=== PATIENT | female | born 1995 | race Caucasian/White ===

== ENCOUNTER 2016-12-18 22:20 | Emergency (ER) | payer SELFPAY ==
[~2016-12-18] VITALS: Ht 167.6 cm; Wt 87.9 kg
[2016-12-18 22:26] VITALS: BP 120/70; PULSE 104; RESP 16; TEMP 97.5; O2SAT 100
[2016-12-18] MEDS ORDERED: HYDR-3533 PO (22:59)
[2016-12-18] MEDS ORDERED: CLIN1CAP5 PO (22:59)
[2016-12-18] MEDS ORDERED: IBUP800T23 PO (22:59)
[2016-12-18] MEDS ORDERED: CLINDAMYCIN 150 MG CAP PO ONE (23:00)
[2016-12-18] MEDS ORDERED: ACETAMINOPHEN/HYDROcodone 325 MG/5 MG TAB PO ONE (23:00)
[2016-12-18] MEDS ORDERED: IBUPROFEN 800 MG TAB PO ONE (23:00)
--- NOTE | 2016-12-18 23:00 | PD ---
HPI Chief Complaint: Back/ Neck Pain or Injury Time Seen by Provider: 22:48 Travel History International Travel<30 days: No Contact w/Intl Traveler<30days: No Traveled to known affect area: No History of Present Illness HPI 21-year-old female presents to the emergency department for complaint of one week of low back buttock cleft pain without injury or trauma. No redness no swelling no fever no chills. Normal bowel movement today. Increased pain today. Last period was approximately 1 week ago and normal for her patient denies is not sexually active. No chronic medical conditions. Direct palpation increases pain to 8/10 in intensity. PFSH Past Medical History Narrative Medical Negative past medical history oral surgery occasional alcohol use no tobacco use nursing notes reviewed Medical History: Denies Significant Hx Tetanus Vaccination: > 5 Years Influenza Vaccination: No ?: Not LMP: 12/12/16 : 0 Past Surgical History Oral Surgery: Yes Social History Alcohol Use: Yes ("RARELY") Tobacco Use: No Substance Use: No Allergies-Medications (Allergen,Severity, Reaction): Coded Allergies: No Known Allergies (Unverified , 12/18/16) Reported Meds & Prescriptions Reported Meds & Active Scripts Active No Active Prescriptions or Reported Medications Review of Systems Except as stated in HPI: all other systems reviewed are Neg General / Constitutional: No: Fever, Chills HENT: No: Congestion Cardiovascular: No: Chest Pain or Discomfort Gastrointestinal: No: Abdominal Pain Genitourinary: No: Flank Pain Musculoskeletal: No: Myalgias, Arthralgias Skin: Positive Rash, Positive Lumps Endocrine: No: Polyuria Hematologic/Lymphatic: No: Lymph Node Enlargement Physical Exam Narrative GENERAL: Well-developed well-nourished female in no acute distress no respiratory distress SKIN: Warm and dry. Buttock left mild erythema with focal induration firm nonfluctuant tissue at the buttock cleft tender to palpation non-pointing CARDIOVASCULAR: Regular rate and rhythm without murmurs, gallops, or rubs. RESPIRATORY: Breath sounds equal bilaterally. No accessory muscle use. BACK: Nontender without obvious deformity. No CVA tenderness. Data Data Last Documented VS Vital Signs Date Time Temp Pulse Resp B/P Pulse Ox O2 Delivery O2 Flow Rate FiO2 12/18/16 22:26 97.5 104 16 120/70 100 Room Air MDM Medical Decision Making Medical Screen Exam Complete: Yes Emergency Medical Condition: Yes Medical Record Reviewed: Yes Differential Diagnosis Cellulitis, abscess, fracture Narrative Course 21 year-old female with most likely an early pilonidal cyst abscess at the buttock cleft however area of mild induration without fluctuance or pointing at this time no area to incise for I&D. Area is tender with firm palpation but otherwise not exquisitely tender and clearly not fluctuant . Patient given first dose of oral antibiotic anticipating within the next 24 hours to area and may show evidence of softening and may require I&D at that time also given prescription for pain medication. Diagnosis Primary Impression: Cellulitis of buttock Additional Impression: Pilonidal cyst Referrals: Primary Care Physician call for appointment Patient Instructions: General Instructions Departure Forms: Tests/Procedures, Work Release Special Instructions: no work x 2 days Additional Instructions: Apply moist heat intimately for next 12-24 hours Take antibiotic as prescribed Follow-up with your primary care physician Take pain medication as prescribed as needed Take acetaminophen as needed for fever 100.4F or greater Med/Other Pt SpecificInfo: Prescription(s) given Scripts Ibuprofen 800 Mg [id number] Mg PO Q8H PRN (PAIN GREATER THAN 5) #12 TAB Ref 0 Prov:Nancy Malik MD 12/18/16 Hydrocodone-Acetaminophen (Lortab)5-325 Mg Tab1 Tab PO Q6H PRN (PAIN) #7 TAB Ref 0 Prov:Nancy Malik MD 12/18/16 Clindamycin 150 Mg [id number] Mg PO Q6H 5 Days Ref 0 Prov:Nancy Malik MD 12/18/16 Disposition: 01 DISCHARGE HOME Condition: Stable Nancy Malik MD Dec 18, 2016 22:59
== END 2016-12-18 23:17 | disposition home or self-care (01) ==
LOC: PHED 22:20
DX: L03.317 Cellulitis of buttock (principal); L05.91 Pilonidal cyst without abscess
CPT/HCPCS: 99283

== ENCOUNTER 2016-12-21 02:41 | Emergency (ER) | payer SELFPAY ==
[~2016-12-21] VITALS: Ht 167.6 cm; Wt 87.0 kg
[~2016-12-21 02:41] MED LIST: CLIN1CAP5 PO; HYDR-3533 PO; IBUP800T23 PO
[2016-12-21 02:49] VITALS: BP 118/79; PULSE 122; RESP 16; TEMP 98.8; O2SAT 100
[2016-12-21] MEDS ORDERED: LIDOCAINE 1%/EPINEPHrine 1:100,000 SOLN 20 ML VIAL INFIL ONE (03:30)
[2016-12-21] MEDS ORDERED: LIDOCAINE 1%/EPINEPHrine 1:100,000 SOLN 30 ML VIAL INFIL ONE (03:45)
--- NOTE | 2016-12-21 04:09 | PD ---
HPI Chief Complaint: Skin Problem Time Seen by Provider: 03:20 Travel History International Travel<30 days: No Contact w/Intl Traveler<30days: No Traveled to known affect area: No History of Present Illness HPI The patient is a 21-year-old female that has a pilonidal cyst and was seen [address] Malik for this. At that time was not ready to drain and Dr. Malik put her on clindamycin which she has been taking correctly. The abscess has been progressively enlarging and becoming more painful. She comes in tonight because the pain as a 9/10. She works at [employer]. She denies any fever. The abscess is more to her right than to the left. PFSH Past Medical History Tetanus Vaccination: < 5 Years ?: Not : 0 Past Surgical History Oral Surgery: Yes Social History Alcohol Use: Yes ("RARELY") Tobacco Use: No Substance Use: No Allergies-Medications (Allergen,Severity, Reaction): Coded Allergies: No Known Allergies (Unverified , 12/18/16) Reported Meds & Prescriptions Reported Meds & Active Scripts Active Ibuprofen 800 Mg Tab 800 Mg PO Q8H PRN Lortab (Hydrocodone-Acetaminophen) 5-325 Mg Tab 1 Tab PO Q6H PRN Clindamycin (Clindamycin HCl) 150 Mg Cap 300 Mg PO Q6H 5 Days Review of Systems Except as stated in HPI: all other systems reviewed are Neg Physical Exam Narrative GENERAL: Well-nourished, well-developed patient. SKIN: Warm and dry. There is a pilonidal cyst which shows exquisite tenderness mostly to the right of midline in the pilonidal area. The area of swelling and tenderness extends to about 8 cm in length and 3 cm in width. It appears to be deep. It should be drained immediately. HEAD: Normocephalic. EYES: No scleral icterus. No injection or drainage. NECK: Supple, trachea midline. No JVD or lymphadenopathy. CARDIOVASCULAR: Regular rate and rhythm without murmurs, gallops, or rubs. RESPIRATORY: Breath sounds equal bilaterally. No accessory muscle use. GASTROINTESTINAL: Abdomen soft, non-tender, nondistended. MUSCULOSKELETAL: No cyanosis, or edema. BACK: Nontender without obvious deformity. No CVA tenderness. Data Data Last Documented VS Vital Signs Date Time Temp Pulse Resp B/P Pulse Ox O2 Delivery O2 Flow Rate FiO2 12/21/16 02:49 98.8 122 16 118/79 100 Orders Wound Culture And Gram Stain (12/21/16 03:26) Lidocai-Epi 1%-1:100,000 Inj (Xylocaine- (12/21/16 03:45) MDM Medical Decision Making Medical Screen Exam Complete: Yes Emergency Medical Condition: Yes Medical Record Reviewed: Yes Differential Diagnosis Pilonidal cyst, cellulitis, perirectal abscess, anorectal fistula Narrative Course The patient has a pilonidal cyst abscess. It is ready to drain immediately. The patient is in severe pain in the abscess appears under considerable pressure. Procedures Procedure Narrative A field block was done and a 2 cm incision was made over the most central part of the abscess area. The area was prepped with Betadine. An extremely large amount of bloody, foul-smelling pus was recovered. It was under pressure and squirted out after the incision was made. The abscess cavity was about 1 cm deep from the surface of the skin. Peroxide Q-tips were used to break up loculations and to clean the abscess cavity out. 1/4 inch iodoform gauze was used as a packing. The patient tolerated the procedure remarkably well. Diagnosis Primary Impression: Pilonidal cyst Additional Impression: Encounter for recheck of abscess following incision and drainage Additional Instructions: As we discussed, take the packing out somewhere around Thursday noon. If she can tolerate it, please put peroxide moistened Q-tips in to clean out any clots that have developed. Have her then sit in a tub of warm water. She should do sitz baths about twice a day for the next week. If you have any problems with this abscess, please return to the emergency department. Problems may include closing off of the abscess and reaccumulation of pus inside the abscess cavity. Another problem might be increasing cellulitic area surrounding the abscess. This would be identified as increasing pain and redness extending from the abscess site peripherally. She may also develop a fever. If she develops a fever, she should be reevaluated. Med/Other Pt SpecificInfo: No Change to Meds Disposition: 01 DISCHARGE HOME Condition: Stable Fox Santiago MD Dec 21, 2016 04:09
[2016-12-21] MEDS ORDERED: oxyCODONE/ACETAMINOPHEN 7.5 MG/325 MG TAB PO ONE (04:15)
[2016-12-21 04:27] VITALS: BP 137/72
== END 2016-12-21 04:49 | disposition home or self-care (01) ==
LOC: PHED 02:41
DX: L05.01 Pilonidal cyst with abscess (principal); B96.89 Other specified bacterial agents as the cause of diseases classified elsewhere
CPT/HCPCS: 10080; 86403; 87070; 87185; 87205